=== PATIENT | male | born 1975 ===

== ENCOUNTER 2017-05-24 23:18 | Day surgery (SDC) | payer OTHER ==
[2017-05-24] MEDS ORDERED: Sodium Chloride 0.9% 1,000 ML IV STA (23:54)
[2017-05-24] MEDS ORDERED: Alum-Mag Hydrox-Simethicone Susp (30 mL) PO ONE (23:54)
--- NOTE | 2017-05-25 00:03 | ED PDOC ---
HPI: General Adult Time Seen by Provider: 05/24/17 23:29 Chief Complaint (Nursing): Abdominal Pain History Per: Patient Additional Complaint(s): Pt. states for the past several hours he's had a burning epigastric pain associated with nausea. Pt. states he woke up with nausea but no vomiting. Pain has persisted despite taking Motrin at home. Last BM was today and was normal. Denies trauma, fever, chest pain, SOB, hematemesis, diarrhea, previous abdominal surgeries. Past Medical History Reviewed: Historical Data, Nursing Documentation, Vital Signs Vital Signs: Last Vital Signs Temp 98.2 F 05/24/17 23:21 Pulse 55 L 05/24/17 23:21 Resp 17 05/24/17 23:21 BP 122/68 05/24/17 23:21 Pulse Ox 100 05/25/17 04:15 - Surgical History Surgical History: No Surg Hx - Family History Family History: States: No Known Family Hx - Social History Current smoker - smoking cessation education provided: No Alcohol: None (last drink was 4 years ago) - Allergies Allergies/Adverse Reactions: Allergies Allergy/AdvReac Type Severity Reaction Status Date / Time No Known Allergies Allergy Verified 05/24/17 23:23 Review of Systems ROS Statement: Except As Marked, All Systems Reviewed And Found Negative Gastrointestinal: Positive for: Nausea, Abdominal Pain Physical Exam - Reviewed Nursing Documentation Reviewed: Yes Vital Signs Reviewed: Yes - Physical Exam Appears: Positive for: Well, Non-toxic, No Acute Distress Head Exam: Positive for: ATRAUMATIC, NORMAL INSPECTION, NORMOCEPHALIC Skin: Positive for: Normal Color, Warm. Negative for: Rash Eye Exam: Positive for: EOMI, Normal appearance, PERRL ENT: Positive for: Normal ENT Inspection Neck: Positive for: Normal, Painless ROM Cardiovascular/Chest: Positive for: Regular Rate, Rhythm Respiratory: Positive for: CNT, Normal Breath Sounds Gastrointestinal/Abdominal: Positive for: Normal Exam, Bowel Sounds, Soft, Other (no ecchymosis). Negative for: Tenderness (to deep palpation), Distended Back: Positive for: Normal Inspection. Negative for: L CVA Tenderness, R CVA Tenderness Extremity: Positive for: Normal ROM Neurologic/Psych: Positive for: Alert, Oriented - Laboratory Results Result Diagrams: 05/24/17 23:50 05/24/17 23:50 - ECG O2 Sat by Pulse Oximetry: 100 - Progress ED Course And Treament: Labs ordered. Pepcid 20mg IV, zofran 4mg IV, maalox 30ml PO given. Abd US ordered. ED OBSERVATION Date of observation admission: 05/25/17 Time of observation admission: 23:52 - Observation admission statement Patient is being placed in observation because:: abdominal pain - Progress Note Progress Note: 05/25/17 01:52 Pt. now writhing in pain. Reports pain has worsened. CT abd/pelvis w/ PO and IV contrast ordered. Morphine 4mg IV, zofran 4mg IV given. Additional IV NS hydration given. Pt. kept NPO. Abd US: fatty liver; no gallstones 05/25/17 04:15 Sleeping comfortably. Easily arousable. Pt. reports good relief of abdominal pain. Pending CT. Disposition - Clinical Impression Clinical Impression: Abdominal pain - Patient ED Disposition Is Patient to be Admitted: Transfer of Care (Signed out to Dr. Gary pending CT results.) - Disposition Disposition Time: 06:00 Condition: STABLE
[2017-05-25] MEDS ORDERED: Alum-Mag Hydrox-Simethicone Susp (30 mL) ONE (00:06)
[2017-05-25 00:10] LABS: BASO % 0.3 % (0.0-2.0); EOS # 0.1 K/uL (0.0-0.7); EOS % 1.1 % (0.0-4.0); HEMOGLOBIN 14.4 g/dL (12.0-18.0); LYMPH % 10.7 % (20.0-40.0); MEAN CELL VOLUME 85.4 fl (80.0-94.0); MEAN CORPUSCULAR HEMOGLOBIN 29.6 pg (27.0-31.0); MEAN CORPUSCULAR HGB CONC 34.7 g/dL (33.0-37.0); MEAN PLATELET VOLUME 8.1 fl (7.2-11.7); MONO # 0.3 K/uL (0.0-0.8); NEUT # 8.2 K/uL (1.8-7.0); NEUT % 84.9 % (50.0-75.0); RBC 4.85 Mil/uL (4.40-5.90); RED CELL DISTRIBUTION WIDTH 13.9 % (11.5-14.5); WHITE BLOOD COUNT 9.7 K/uL (4.8-10.8)
[2017-05-25 00:26] LABS: ALB/GLOB RATIO 1.5 (1.0-2.1); ALBUMIN 4.4 g/dL (3.5-5.0); ALT/SGPT 72 U/L (21-72); AST/SGOT 42 U/L (17-59); BLOOD UREA NITROGEN 13 mg/dl (9-20); GFR AFRICAN-AMERICAN > 60; GFR NON-AFRICAN AMERICAN > 60; LIPASE 28 U/L (23-300)
--- NOTE | 2017-05-25 00:47 | US ---
EXAM: US Abdomen Limited, Right Upper Quadrant CLINICAL HISTORY: 41 years old, male; Pain; Abdominal pain; Epigastric; Additional info: Epigastric pain TECHNIQUE: Real-time ultrasound of the right upper quadrant with image documentation. EXAM DATE/TIME: 05/25/2017 12:05 AM COMPARISON: There are no prior studies for comparison. FINDINGS: Liver: Hepatic texture is mildly heterogeneous.There is hepatopedal flow in the main portal vein. Gallbladder: Gallbladder is only partially distended with no stones, sludge or wall thickening. Common bile duct: Common bile duct measures 3.35 mm Pancreas: Pancreas is almost completely obscured by bowel gas. Right kidney: Right kidney is unremarkable. Aorta: Visualized portions of the aorta and inferior vena cava are unremarkable. IMPRESSION: Fatty liver; no gallstones or ductal dilatation Patient was not tender over the gallbladder
[2017-05-25] MEDS ORDERED: Iohexol 240 (50 ml) PO ONE (01:45)
[2017-05-25] MEDS ORDERED: Sodium Chloride 0.9% 1,000 ML IV STA (01:45)
[2017-05-25] MEDS ORDERED: Morphine 4 MG/ML VIAL IVP STA (01:45)
[2017-05-25] MEDS ORDERED: Iohexol 240 (50 ml) ONE (02:07)
[2017-05-25 02:24] LABS: URINE BILIRUBIN NEGATIVE (NEGATIVE); URINE BLOOD NEGATIVE (NEGATIVE); URINE CLARITY CLEAR (Clear); URINE COLOR YELLOW (YELLOW); URINE GLUCOSE (UA) NEG (Normal); URINE LEUKOCYTE ESTERASE NEG Leu/uL (Negative); URINE NITRATE NEGATIVE (NEGATIVE); URINE PROTEIN NEGATIVE (NEGATIVE); URINE UROBILINOGEN 0.2-1.0 mg/dL (0.2-1.0)
--- NOTE | 2017-05-25 06:19 | CT ---
EXAM: CT Abdomen and Pelvis With Intravenous Contrast CLINICAL HISTORY: 41 years old, male; Pain; Abdominal pain; Localized; Lower; Additional info: Epigastric abdominal pain TECHNIQUE: Axial computed tomography images of the abdomen and pelvis with intravenous contrast. This CT exam was performed using one or more of the following dose reduction techniques: automated exposure control, adjustment of the mA and/or kV according to patient size, and/or use of iterative reconstruction technique. Coronal and sagittal reformatted images were created and reviewed. CONTRAST: 90 mL of omnipaque administered intravenously. COMPARISON: US - ABDOMEN LIMITED 05/25/2017 12:13:08 AM FINDINGS: Lower thorax: Trace bibasilar atelectasis. A ABDOMEN: Liver: No acute findings. Gallbladder and bile ducts: The gallbladder is decompressed. No calcified stones. No significant intra- or extrahepatic biliary ductal dilation. Pancreas: Enhances homogeneously. No ductal dilation. No discrete mass. Spleen: No acute findings. Adrenals: No acute findings. Kidneys and ureters: No acute findings. No hydronephrosis or renal calculi. No discrete solid mass. PELVIS: Bladder: No acute findings. Reproductive: No acute findings. Appendix: Multiple appendicoliths are identified within the proximal third of the appendix (series 3, image 141) the proximal third of the appendix is of normal caliber. The middle third of the appendix is distended (to 11.6 mm) with trace periappendiceal inflammation detected. No signs of perforation are identified. ABDOMEN and PELVIS: Stomach and bowel: As above. Peritoneum: As above. Lymph nodes: No pathologically enlarged lymph nodes. Vasculature: Unremarkable. Bones: No acute fracture. IMPRESSION: Findings within the right lower quadrant (as detailed above) which in the appropriate clinical scenario suggests the presence of acute/early appendicitis.
--- NOTE | 2017-05-25 06:47 | ED PDOC ---
- Laboratory Results Result Diagrams: 05/24/17 23:50 05/24/17 23:50 - ECG O2 Sat by Pulse Oximetry: 98 (RA) Pulse Ox Interpretation: Normal Medical Decision Making Medical Decision Making: Time: 0600 Initial impression: Acute Appendicitis Initial plan: --Patient signed out to me by Km García PA-C. Pending CT Scan. --CT Scan results/Re-evaluation: Evaluated patient and found tenderness in the right lower quadrant. Will put a call out for Dr. Bowers. In providers opinion, patient has acute appendicitis as was mentioned, per the possibility on CT report. Addendum created by Maria Luisa Tapia MD on 05/25/2017 6:25 AM Eastern Time ([place] & [place]) The findings were verbally communicated via telephone conference with Dr Gary at 6:23 AM EDT on 05/25/2017. The findings were acknowledged and understood. Initial Report created on 05/25/2017 6:19 AM Eastern Time ([place] & [place]) EXAM: CT Abdomen and Pelvis With Intravenous Contrast CLINICAL HISTORY: 41 years old, male; Pain; Abdominal pain; Localized; Lower; Additional info: Epigastric abdominal pain TECHNIQUE: Axial computed tomography images of the abdomen and pelvis with intravenous contrast. This CT exam was performed using one or more of the following dose reduction techniques : automated exposure control, adjustment of the mA and/or kV according to patient size, and/ or use of iterative reconstruction technique. Coronal and sagittal reformatted images were created and reviewed. CONTRAST: 90 mL of omnipaque administered intravenously. COMPARISON: US - ABDOMEN LIMITED 05/25/2017 12:13:08 AM FINDINGS: Lower thorax: Trace bibasilar atelectasis. A ABDOMEN: Liver: No acute findings. Gallbladder and bile ducts: The gallbladder is decompressed. No calcified stones. No significant intra- or extrahepatic biliary ductal dilation. Pancreas: Enhances homogeneously. No ductal dilation. No discrete mass. Spleen: No acute findings. Adrenals: No acute findings. Kidneys and ureters: No acute findings. No hydronephrosis or renal calculi. No discrete solid mass. PELVIS: Bladder: No acute findings. Reproductive: No acute findings. Appendix: Multiple appendicoliths are identified within the proximal third of the appendix (series 3, image 141) the proximal third of the appendix is of normal caliber. The middle third of the appendix is distended (to 11.6 mm) with trace periappendiceal inflammation detected. No signs of perforation are identified. ABDOMEN and PELVIS: Stomach and bowel: As above. Peritoneum: As above. Lymph nodes: No pathologically enlarged lymph nodes. Vasculature: Unremarkable. Bones: No acute fracture. IMPRESSION: Findings within the right lower quadrant (as detailed above) which in the appropriate clinical scenario suggests the presence of acute/early appendicitis. 0650: Spoke with surgical instrument maker Dr. Thapa who will be admitting patient. Dr. Thapa will consult with Dr. Bowers. Scribe Attestation: Documented by Lubna Mancilla, acting as a scribe for Brandin Gary MD. Scribe Attestation: All medical record entries made by the Scribe were at my direction and personally dictated by me. I have reviewed the chart and agree that the record accurately reflects my personal performance of the history, physical exam, medical decision making, and the department course for this patient. I have also personally directed, reviewed, and agree with the discharge instructions and disposition. Disposition Discussed With .: Ted Thapa Comment: Dr. Thapa will inform Dr. Bowers. Doctor Will See Patient In The: Hospital - Clinical Impression Clinical Impression: Appendicitis - POA Present On Arrival: None - Disposition Disposition: Admitted as In-Patient Disposition Time: 23:52 Condition: FAIR
[2017-05-25] MEDS ORDERED: Piperacillin/Tazobact 3.375 GM in Sodium Chloride 0.9% 100 ML IV STA (06:51)
[2017-05-25] MEDS ORDERED: Dextrose 5%/0.45% NS 1,000 ML IV SCH (07:15)
[2017-05-25] MEDS ORDERED: Piperacillin/Tazobact 3.375 gm Inj IVPB ONE (08:01)
--- NOTE | 2017-05-25 08:38 | CARD ---
APPROVED REPORT EKG Measurement Heart [id number] <Conclusion> Normal sinus rhythm Normal ECG
[2017-05-25] MEDS ORDERED: Morphine 4 MG/ML VIAL IVP PRN (08:43)
[2017-05-25] MEDS: Lactated Ringer's 1,000 ML IV SCH ×3 (09:08→20:45)
--- NOTE | 2017-05-25 09:16 | CP.PCM.HP ---
History of Present Illness - History of Present Illness History of Present Illness: Surgery: Dr. Bowers CC: Abd pain HPI: 41M w. no significant PMH presents w. worsening abd pain since 2 PM yesterday. Pain started off diffuse, became localized to RLQ. Pt reports nausea , no vomiting. No F/C. No CLARK/blurred vision. No CP/palpitations, no SOB/cough, no diarrhea, no weakness/fatigue. CT done in ED showed appendicitis. PMH: none PSH: none Meds: none NKDA Social: +ETOH, no tobacco/drugs Fhx: non-contributory Present on Admission - Present on Admission Any Indicators Present on Admission: No Review of Systems - Review of Systems All systems: reviewed and no additional remarkable complaints except (HPI) Past Patient History - Past Social History Smoking Status: Never Smoked - PSYCHIATRIC Hx Emotional Abuse: No Hx Physical Abuse: No - SURGICAL HISTORY Hx Surgeries: No Meds Allergies/Adverse Reactions: Allergies Allergy/AdvReac Type Severity Reaction Status Date / Time No Known Allergies Allergy Verified 05/24/17 23:23 Physical Exam - Constitutional Appears: Non-toxic, No Acute Distress - Head Exam Head Exam: ATRAUMATIC, NORMOCEPHALIC - Eye Exam Eye Exam: EOMI - ENT Exam ENT Exam: Mucous Membranes Moist, Normal External Ear Exam - Neck Exam Neck exam: Positive for: Full Rom - Respiratory Exam Respiratory Exam: NORMAL BREATHING PATTERN. absent: Accessory Muscle Use, Respiratory Distress - GI/Abdominal Exam GI & Abdominal Exam: Firm, Tenderness (RLQ). absent: Distended, Guarding, Rebound, Rigid, Soft - Extremities Exam Extremities exam: Positive for: calf tenderness, pedal edema Results - Vital Signs Recent Vital Signs: Last Vital Signs Temp 98.2 F 05/25/17 07:49 Pulse 64 05/25/17 08:56 Resp 20 05/25/17 07:49 BP 131/73 05/25/17 07:49 Pulse Ox 100 05/25/17 07:49 - Labs Result Diagrams: 05/24/17 23:50 05/24/17 23:50 Labs: Laboratory Results - last 24 hr 05/25/17 07:03 Lactic Acid 1.3 - Imaging and Cardiology CT scan - abdomen Status: Image reviewed by me, Report reviewed by me Assessment & Plan - Assessment and Plan (Free Text) Assessment: 41M w. appendicitis -OR this morning for lap appy -consent in chart, risks/benefits d/w pt -NPO -zosyn -IVF -zofran -morphine -d/w attending Alanis PGY2
[2017-05-25] MEDS ORDERED: Propofol 10 mg/ml Inj (20 ML) ONE (09:20)
[2017-05-25] MEDS ORDERED: Midazolam 2 MG/2 ML VIAL ONE (09:20)
[2017-05-25] MEDS ORDERED: Rocuronium 10 mg/ml (5 ml) ONE (09:21)
[2017-05-25] MEDS ORDERED: Lactated Ringer's 1,000 ML IV ONE (09:38)
[2017-05-25] MEDS ORDERED: Neostigmine Methylsulfate 3mg/3ml Syringe IV ONE (10:20)
--- NOTE | 2017-05-25 10:37 | PCM.SURG1 ---
Surgeon's Initial Post Op Note - Surgeon's Notes Surgeon: Robinson Tool Polishing Machine Operator: Alanis PGY3 Type of Anesthesia: General Endo Pre-Operative Diagnosis: appendicitis Operative Findings: acutely inflamed appendix Post-Operative Diagnosis: same Operation Performed: laparoscopic appendectomy Specimen/Specimens Removed: appendix Estimated Blood Loss: EBL {In ML}: 10 Blood Products Given: N/A Drains Used: No Drains Post-Op Condition: Good Date of Surgery/Procedure: 05/25/17 Time of Surgery/Procedure: 10:37
[2017-05-25] MEDS ORDERED: HYDROmorphone 0.5 mg/0.5 ml ISec IVP PRN (10:45)
[2017-05-25] MEDS: Oxycodone/Acetaminophen 5/325 mg Tab PO PRN (20:21)
[2017-05-25] MEDS: Piperacill/Tazo 3.375gm in Dex 3.375 GM/50 ML BAG IVPB SCH (20:22)
[2017-05-26] MEDS: Lactated Ringer's 1,000 ML IV SCH ×2 (00:45→01:35)
--- NOTE | 2017-05-26 03:45 | OP ---
DATE OF OPERATION: 05/25/2017 PREOPERATIVE DIAGNOSIS: Acute appendicitis. POSTOPERATIVE DIAGNOSIS: Acute appendicitis. PROCEDURE: Laparoscopic appendectomy. SURGEON: Young Bowers MD INDUSTRIAL SAFETY ENGINEER: Alanis PGY3. TYPE OF ANESTHESIA: General. ANESTHESIA ADMINISTERED BY: Dr. Cantu. ESTIMATED BLOOD LOSS: 10 mL. DESCRIPTION OF PROCEDURE: With the patient in the supine position under adequate general anesthesia, the abdomen was prepped and draped in the usual sterile manner. Veress needle puncture was performed at the umbilicus with insufflation to 15 cmH2O CO2 and a 10 mm laparoscopic trocar was inserted via an infraumbilical incision. Under direct vision 5 and 12 mm trocars were inserted in the left lower quadrant. The appendix was visualized. The proximal portion of the appendix was well-preserved; however, the distal portion of the appendix was markedly bulbous, dilated, and acutely inflamed. The appendix was elevated and the mesoappendix was dissected close to the cecum. The appendix was divided using an Endo-GERRY stapler and the mesoappendix was then divided using a second pass of the Endo-GERRY stapler. The area of the appendiceal artery was reinforced with hemoclips. The appendix was placed in a specimen retrieval bag and removed via the 12 mm port site. The right lower quadrant was inspected for hemostasis and the pneumoperitoneum was released and the trocars were removed. The umbilical and 12 mm port site were closed with figure of 8 fascial sutures of 0-Vicryl. All incisions were closed with 4-0 Monocryl subcuticular sutures and Steri-Strips. Dry sterile dressings were applied. The patient tolerated the procedure well and transferred to recovery room in stable condition. Young Bowers MD MTDTee
[2017-05-26 06:49] LABS: BASO % 0.1 % (0.0-2.0); BLOOD UREA NITROGEN 9 mg/dl (9-20); CALCIUM 8.9 mg/dL (8.4-10.2); EOS # 0.1 K/uL (0.0-0.7); EOS % 0.9 % (0.0-4.0); GFR AFRICAN-AMERICAN > 60; GFR NON-AFRICAN AMERICAN > 60; HEMOGLOBIN 13.7 g/dL (12.0-18.0); LYMPH # 1.5 K/uL (1.0-4.3); MEAN CELL VOLUME 85.8 fl (80.0-94.0); MEAN CORPUSCULAR HEMOGLOBIN 29.7 pg (27.0-31.0); MEAN CORPUSCULAR HGB CONC 34.6 g/dL (33.0-37.0); MEAN PLATELET VOLUME 8.4 fl (7.2-11.7); MONO # 0.6 K/uL (0.0-0.8); MONO % 7.4 % (0.0-10.0); NEUT # 5.7 K/uL (1.8-7.0); NEUT % 72.6 % (50.0-75.0); NRBC % 0.1 % (0.0-0.0); RBC 4.61 Mil/uL (4.40-5.90); RED CELL DISTRIBUTION WIDTH 13.9 % (11.5-14.5); WHITE BLOOD COUNT 7.9 K/uL (4.8-10.8)
[2017-05-26] MEDS: Oxycodone/Acetaminophen 5/325 mg Tab PO PRN (08:13)
[2017-05-26 08:45] VITALS: BP 122/58; PULSE 75; RESP 18; TEMP 98.3; O2SAT 98
[2017-05-26] MEDS: Piperacill/Tazo 3.375gm in Dex 3.375 GM/50 ML BAG IVPB SCH (09:10)
--- NOTE | 2017-05-26 10:00 | CP.PCM.DIS ---
Provider - Provider Date of Admission: 05/25/17 06:39 Attending physician: Young Bowers MD Consults: none Time Spent in preparation of Discharge (in minutes): 30 Diagnosis - Discharge Diagnosis (1) Appendicitis Status: Resolved Hospital Course - Lab Results Lab Results: Most Recent Lab Values WBC 7.9 K/uL (4.8-10.8) 05/26/17 06:26 RBC 4.61 Mil/uL (4.40-5.90) 05/26/17 06:26 Hgb 13.7 g/dL (12.0-18.0) 05/26/17 06:26 Hct 39.6 % (35.0-51.0) 05/26/17 06:26 MCV 85.8 fl (80.0-94.0) 05/26/17 06:26 MCH 29.7 pg (27.0-31.0) 05/26/17 06:26 MCHC 34.6 g/dL (33.0-37.0) 05/26/17 06:26 RDW 13.9 % (11.5-14.5) 05/26/17 06:26 Plt Count 196 K/uL (130-400) 05/26/17 06:26 MPV 8.4 fl (7.2-11.7) 05/26/17 06:26 Neut % (Auto) 72.6 % (50.0-75.0) 05/26/17 06:26 Lymph % (Auto) 19.0 % (20.0-40.0) L 05/26/17 06:26 [place] % (Auto) 7.4 % (0.0-10.0) 05/26/17 06:26 Eos % (Auto) 0.9 % (0.0-4.0) 05/26/17 06:26 Baso % (Auto) 0.1 % (0.0-2.0) 05/26/17 06:26 Neut # 5.7 K/uL (1.8-7.0) 05/26/17 06:26 Lymph # 1.5 K/uL (1.0-4.3) 05/26/17 06:26 [place] # 0.6 K/uL (0.0-0.8) 05/26/17 06:26 Eos # 0.1 K/uL (0.0-0.7) 05/26/17 06:26 Baso # 0.0 K/uL (0.0-0.2) 05/26/17 06:26 Sodium 138 mmol/l (132-148) 05/26/17 06:26 Potassium 4.1 MMOL/L (3.6-5.0) 05/26/17 06:26 Chloride 103 mmol/L (98-107) 05/26/17 06:26 Carbon Dioxide 26 mmol/L (22-30) 05/26/17 06:26 Anion Gap 13 (10-20) 05/26/17 06:26 BUN 9 mg/dl (9-20) 05/26/17 06:26 Creatinine 1.0 mg/dL (0.8-1.5) 05/26/17 06:26 Est GFR ( Amer) > 60 05/26/17 06:26 Est GFR (Non-Af Amer) > 60 05/26/17 06:26 Random Glucose 100 mg/dL (75-110) 05/26/17 06:26 Lactic Acid 1.3 MMOL/L (0.7-2.1) 05/25/17 07:03 Calcium 8.9 mg/dL (8.4-10.2) 05/26/17 06:26 Total Bilirubin 1.2 mg/dl (0.2-1.3) 05/24/17 23:50 AST 42 U/L (17-59) 05/24/17 23:50 ALT 72 U/L (21-72) 05/24/17 23:50 Alkaline Phosphatase 65 U/L (38-126) 05/24/17 23:50 Total Protein 7.3 G/DL (6.3-8.2) 05/24/17 23:50 Albumin 4.4 g/dL (3.5-5.0) 05/24/17 23:50 Globulin 2.9 gm/dL (2.2-3.9) 05/24/17 23:50 Albumin/Globulin Ratio 1.5 (1.0-2.1) 05/24/17 23:50 Lipase 28 U/L (23-300) 05/24/17 23:50 Urine Color Yellow (YELLOW) 05/25/17 02:17 Urine Clarity Clear (Clear) 05/25/17 02:17 Urine pH 7.0 (5.0-8.0) 05/25/17 02:17 Ur Specific [place] 1.020 (1.003-1.030) 05/25/17 02:17 Urine Protein Negative mg/dL (NEGATIVE) 05/25/17 02:17 Urine Glucose (UA) Neg mg/dL (Normal) 05/25/17 02:17 Urine Ketones Negative mg/dL (NEGATIVE) 05/25/17 02:17 Urine Blood Negative (NEGATIVE) 05/25/17 02:17 Urine Nitrate Negative (NEGATIVE) 05/25/17 02:17 Urine Bilirubin Negative (NEGATIVE) 05/25/17 02:17 Urine Urobilinogen 0.2-1.0 mg/dL (0.2-1.0) 05/25/17 02:17 Ur Leukocyte Esterase Neg [place]/uL (Negative) 05/25/17 02:17 Urine RBC (Auto) 2 /hpf (0-3) 05/25/17 02:17 Urine Microscopic WBC < 1 /hpf (0-5) 05/25/17 02:17 - Hospital Course Hospital Course: 41yo M with no significant PMHx presented to the [place] ED on 05/25/17 with abdominal pain that started off diffuse, but became localized to RLQ. He had associated nausea but no vomiting. CT done in ED showed nonperforated appendicitis and multiple appendicoliths. He was taken to the OR the same day for laparoscopic appendectomy. On POD#1, he was tolerating regular diet, ambulating, urinating, pain well controlled, and he was discharged home with a prescription for Percocet and to follow up with Dr. Bowers in her office. Discharge Exam - Head Exam Head Exam: ATRAUMATIC, NORMOCEPHALIC - Eye Exam Eye Exam: EOMI, Normal appearance - Respiratory Exam Respiratory Exam: NORMAL BREATHING PATTERN. absent: Respiratory Distress - Cardiovascular Exam Cardiovascular Exam: +S1, +S2 - GI/Abdominal Exam GI & Abdominal Exam: Soft, Tenderness (mild tenderness near incision sites). absent: Distended, Firm, Guarding, Rigid Additional comments: Band aids in place over laparoscopic incision sites - Neurological Exam Neurological exam: Alert, CN II-XII Intact, Oriented x3 - Psychiatric Exam Psychiatric exam: Normal Affect, Normal Mood - Skin Skin Exam: Dry, Normal Color, Warm Discharge Plan - Follow Up Plan Condition: FAIR Disposition: HOME/ ROUTINE Instructions: Oxycodone/Acetaminophen (By mouth), Laparoscopic Appendectomy (DC ) Additional Instructions: llamar a la Nieves para germaine dentro de 7-10 keys May take Percocet as prescribed for pain PRN Follow up with Dr. Bowers in her office in 1-2 weeks. Call to make appointment. No heavy lifting for 4 weeks May resume regular diet May remove top band aids tomorrow and shower. Do not take a bath or swim. Leave white steri strips in place. They will fall off on their own over time. Referrals: Young Bowers MD [Staff Provider] -
== END 2017-05-26 13:28 | disposition home or self-care (01) ==
LOC: H.ER 23:18 → H.SDS 23:19 → UNDOADMOB 23:52 → H.EROBSV 23:52 → H.ERHOLD 05-25 06:39 → INTOOBSV 05-25 06:39 → OBSVTOIN 05-25 06:39 → H.ERHOLD 05-25 11:53 → H.MEDSURG1 05-25 11:53 → H.SDS 05-26 13:28 → UNDODISIN 05-26 13:28
PROVIDERS: ATTEND Physician Assistant
DX: K35.80 Unspecified acute appendicitis (principal)